=== PATIENT | male | born 1975 | race Caucasian/White ===

== ENCOUNTER 2020-10-06 04:26 | Emergency (ER) | payer SELFPAY ==
[~2020-10-06] VITALS: Ht 175.3 cm; Wt 86.6 kg
--- NOTE | 2020-10-06 04:37 | PHYS DOC ---
Past Medical History Past Medical History: No Pertinent History General Adult EDM: Chief Complaint: ALTERED MENTAL STATUS HPI: HPI: 45M brought in police custody for the evaluation of reported seizure like activity and altered mentation. [place] and when he was being arrested by police, he dropped to the ground and his body began shaking. Upon EMS arrival on scene, patient was able to follow commands but refused to speak. He again began shaking, but remained conscious and directable. Patient is currently uncooperative and refuses to speak. Review of Systems: Review of Systems: ROS limited 2/2 poor patient cooperation. Physical Exam: PE: Gen: NAD. Head: NC/AT. Eyes: No scleral icterus. No conjunctival injection. PERRL. ENT: MMM. Posterior OP clear. Neck: Supple. CV: RRR. Peripheral pulses intact. Resp: CTAB. Abd: Soft. NT. ND. MSK: No peripheral cyanosis. No edema. Neuro: Eyes closed, but consciously aware and able to follow commands. Visualized to mobilize all 4 extremities symmetrically. Skin. Warm. Dry. Psych: Flat affect. Eyes remain closed. Current Patient Data: Labs: Laboratory Tests Test 10/06/20 04:35 White Blood Count 12.3 x10^3/uL (4.0-11.0) Red Blood Count 4.70 x10^6/uL (4.30-5.70) Hemoglobin 14.7 g/dL (13.0-17.5) Hematocrit 43.3 % (39.0-53.0) Mean Corpuscular Volume 92 fL (79-100) Mean Corpuscular Hemoglobin 31 pg (25-35) Mean Corpuscular Hemoglobin Concent 34 g/dL (31-37) Red Cell Distribution Width 13.4 % (11.5-14.5) Platelet Count 290 x10^3/uL (140-400) Neutrophils (%) (Auto) 77 % (31-73) Lymphocytes (%) (Auto) 13 % (24-48) Monocytes (%) (Auto) 8 % (0-9) Eosinophils (%) (Auto) 1 % (0-3) Basophils (%) (Auto) 1 % (0-3) Neutrophils # (Auto) 9.4 x10^3/uL (1.8-7.7) Lymphocytes # (Auto) 1.6 x10^3/uL (1.0-4.8) Monocytes # (Auto) 1.0 x10^3/uL (0.0-1.1) Eosinophils # (Auto) 0.2 x10^3/uL (0.0-0.7) Basophils # (Auto) 0.1 x10^3/uL (0.0-0.2) Sodium Level 138 mmol/L (136-145) Chloride Level 103 mmol/L (98-107) Carbon Dioxide Level 25 mmol/L (21-32) Anion Gap 10 (6-14) Blood Urea Nitrogen 7 mg/dL (8-26) Estimated GFR (Cockcroft-Gault) 73.1 BUN/Creatinine Ratio 6 (6-20) Glucose Level 110 mg/dL (70-99) Calcium Level 9.4 mg/dL (8.5-10.1) Total Bilirubin 0.4 mg/dL (0.2-1.0) Aspartate Amino Transf (AST/SGOT) 20 U/L (15-37) Alkaline Phosphatase 72 U/L (46-116) Troponin I Quantitative < 0.017 ng/mL (0.000-0.055) Total Protein 7.1 g/dL (6.4-8.2) Albumin 3.7 g/dL (3.4-5.0) Albumin/Globulin Ratio 1.1 (1.0-1.7) EKG: EKG: EKG at 0437. Sinus rhythm. Heart rate 61. Normal intervals. No STEMI. Interpreted by me. Radiology/Procedures: Radiology/Procedures: EXAM: CT HEAD WITHOUT CONTRAST. HISTORY: Altered mental status. TECHNIQUE: Computed tomography of the head was performed without intravenous contrast. One or more of the following individualized dose reduction techniques were utilized for this examination: 1. Automated exposure control. 2. Adjustment of the mA and/or kV according to patient size. 3. Use of iterative reconstruction technique. COMPARISON: None. FINDINGS: There are limitations from motion artifact. There is no intracranial hemorrhage. Kumar-white differentiation is preserved. The ventricles are normal in size and position. Both maxillary sinuses are mostly opacified. The ethmoid air cells are mostly opacified on the right greater than left. There is a mucus retention cyst in these frontal sinus. The turbinates have been partially resected. There is also mucosal thickening within the right aspect of the sphenoid sinus. The orbits are unremarkable. The temporal bones are unremarkable. The calvarium reveals no suspicious lesions. IMPRESSION: 1. No acute intracranial findings. 2. Diffuse opacification of the paranasal sinuses as above. Electronically signed by: Natasha Bledsoe MD (10/06/2020 5:05 AM) [facility] Course & Med Decision Making: Course & Med Decision Making Pertinent Labs and Imaging studies reviewed. (See chart for details) In summary, 45M presenting with reported seizure like activity that began immediately after being placed into police custody at the nearby [facility]. Patient is conscious, follows commands, but refuses to speak. This appears volitional in nature; I do not suspect true aphasia. He has a largely unremarkable exam, though somewhat limited 2/2 poor cooperation. He has no gross focal findings on his neuro exam. Basic labs were unrevealing. EKG shows no acute injury pattern. CT head is negative for acute intracranial pathology. I highly suspect malingering rather than true epileptic episode. As the patient was about to be discharged, he now opens up and states he "took a lot of heroin" prior to being placed into custody. No pinpoint pupils, hypoxia or apnea. Will hold DC for now and obs in ED. Signed out to Dr. Clemens pending ED observation period and disposition. Amirah Disclaimer: Amirah Disclaimer: This electronic medical record was generated, in whole or in part, using a voice recognition dictation system. Departure Departure Impression: Primary Impression: Observed seizure-like activity Additional Impressions: Malingering Opiate use Condition: STABLE Patient Instructions: Altered Mental Status MARK RASCON DO Oct 06, 2020 04:37
--- NOTE | 2020-10-06 04:40 | EKG ---
[facility] [address] [place] [address] Test Date: 2020-10-06 Test Time: 04:37:27 Pat Name: BK ESPOSITO Department: Room: Gender: Strategy Associate: : 1975 Requested By: MARK RASCON Order Number: [id number] Reading MD: Measurements Intervals [place] Rate: 61 P: 0 CA: 178 QRS: 4 QRSD: 74 T: 38 QT: 398 QTc: 402 Interpretive Statements SINUS RHYTHM R-S TRANSITION ZONE IN V LEADS DISPLACED TO THE RIGHT NO SPECIFIC ECG ABNORMALITIES RI6.02 No previous ECG available for comparison
[2020-10-06 04:47] LABS: BASO # 0.1 x10^3/uL (0.0-0.2); BASO % 1 % (0-3); EOS # 0.2 x10^3/uL (0.0-0.7); EOS % 1 % (0-3); HEMATOCRIT 43.3 % (39.0-53.0); HEMOGLOBIN 14.7 g/dL (13.0-17.5); LYMPH # 1.6 x10^3/uL (1.0-4.8); LYMPH % 13 % (24-48); MEAN CORPUSCULAR HEMOGLOBIN 31 pg (25-35); MEAN CORPUSCULAR HGB CONC 34 g/dL (31-37); MEAN CORPUSCULAR VOLUME 92 fL (79-100); MONO % 8 % (0-9); NEUT # 9.4 x10^3/uL (1.8-7.7); NEUT % 77 % (31-73); PLATELET COUNT 290 x10^3/uL (140-400); RED CELL DISTRIBUTION WIDTH 13.4 % (11.5-14.5); WHITE BLOOD COUNT 12.3 x10^3/uL (4.0-11.0)
[2020-10-06 04:57] LABS: CALCIUM 9.4 mg/dL (8.5-10.1); CREATININE 1.1 mg/dL (0.7-1.3); GFR 73.1; POTASSIUM 3.5 mmol/L (3.5-5.1)
[2020-10-06 05:02] LABS: ALBUMIN 3.7 g/dL (3.4-5.0); ALBUMIN/GLOBULIN RATIO 1.1 (1.0-1.7); MAGNESIUM 1.7 mg/dL (1.8-2.4); TOTAL BILIRUBIN 0.4 mg/dL (0.2-1.0); TOTAL PROTEIN 7.1 g/dL (6.4-8.2)
--- NOTE | 2020-10-06 05:08 | RAD ---
EXAM: CT HEAD WITHOUT CONTRAST. HISTORY: Altered mental status. TECHNIQUE: Computed tomography of the head was performed without intravenous contrast. One or more of the following individualized dose reduction techniques were utilized for this examination: 1. Automated exposure control. 2. Adjustment of the mA and/or kV according to patient size. 3. Use of iterative reconstruction technique. COMPARISON: None. FINDINGS: There are limitations from motion artifact. There is no intracranial hemorrhage. Kumar-white differentiation is preserved. The ventricles are normal in size and position. Both maxillary sinuses are mostly opacified. The ethmoid air cells are mostly opacified on the right greater than left. There is a mucus retention cyst in these frontal sinus. The turbinates have been p artially resected. There is also mucosal thickening within the right aspect of the sphenoid sinus. Th e orbits are unremarkable. The temporal bones are unremarkable. The calvarium reveals no suspicious l esions. IMPRESSION: 1. No acute intracranial findings. 2. Diffuse opacification of the paranasal sinuses as above. Electronically signed by: Natasha Bledsoe MD (10/06/2020 5:05 AM) [facility]
[2020-10-06] MEDS ORDERED: NALOXONE 0.4 MG/ML VIAL. IV ONE (05:45)
[2020-10-06 07:56] VITALS: BP 134/87
== END 2020-10-06 09:13 | disposition home or self-care (01) ==
LOC: ER 04:26 → EEVIPCON 04:26 → ER 09:13
DX: R56.9 Unspecified convulsions (principal); Z76.5 Malingerer [conscious simulation]; F11.90 Opioid use, unspecified, uncomplicated
CPT/HCPCS: 36415; 70450; 80053; 83735; 84484; 85025; 93005; 99285-25